=== PATIENT | male | born 1970 | race Caucasian/White ===

== ENCOUNTER 2017-06-28 03:13 | Emergency (ER) | payer OTHER ==
[~2017-06-28] VITALS: Ht 172.7 cm; Wt 82.0 kg
[2017-06-28 03:21] VITALS: TEMP 36.8; Ht 172.7 cm; Wt 82.0 kg
[2017-06-28] MEDS ORDERED: KETOROLAC TROMETHAMINE 60 MG/2 ML VIAL IM STA (03:44)
[2017-06-28] MEDS ORDERED: [UNRECOGNIZED DRUG - OTHER] PO (04:21)
[2017-06-28] MEDS ORDERED: ROPI0.5T15 PO (04:21)
[2017-06-28] MEDS ORDERED: IBUP-1050 PO (04:21)
[2017-06-28] MEDS ORDERED: RANI150T3 PO (04:21)
[2017-06-28] MEDS ORDERED: PEDICHW53 PO (04:21)
[2017-06-28] MEDS ORDERED: [UNRECOGNIZED DRUG - MIXTURE] PO (04:22)
[2017-06-28] MEDS ORDERED: MoRPHine SULFATE 10 MG/ML CARP/VIAL IM STA (04:28)
[2017-06-28] MEDS ORDERED: MoRPHine SULFATE 4 MG/ML 1 ML CARP\\VIAL ONE (04:32)
[2017-06-28] MEDS ORDERED: METH4PAK PO (05:27)
[2017-06-28] MEDS ORDERED: OXYC1TAB3 PO (05:27)
--- NOTE | 2017-06-28 05:28 | EMERGENCY ROOM VISIT NOTE ---
History First contact with patient: 03:23 Chief Complaint: BACK PAIN Stated Complaint: BACK PAIN SHOOTING DOWN LEFT LEG History of Present Illness The patient is a 46 year old male who presents to the Emergency Room with complaints of low back pain. The patient reports that for the past 3 weeks, he has had some mild pain in low back. He reports that he initially thought this was due to tight muscles. He saw a chiropractor and states this somewhat improved his pain. He has had worsening pain over the past 2 days. He states that the pain is in his left lower back and radiates into his left leg down to his foot. He rates the discomfort a 10/10 and states the pain is a sharp, pulsating and throbbing pain. The pain is worsened with moving. He took 800 mg ibuprofen tonight without relief of the pain. He had similar symptoms several years ago on his right side but states these resolved quickly. He has been slightly nauseous when the pain is severe, but denies any vomiting. He denies abdominal pain, urinary symptoms, numbness, weakness, saddle anesthesia or bowel/bladder incontinence. He denies fevers. Review of Systems A complete 10 point review of systems was reviewed with the patient with pertinent positives and negatives as per history of present illness. All else were negative. Social History Smoking Status: Never Smoker Alcohol Use: occasionally Marital Status: single Occupation Status: employed Current/Historical Medications Scheduled Methylprednisolone (Medrol Dosepak), 0 PO DAILY Pediatric Multiple Vitamin W/ (Flintstones Gummies), 1 TAB PO BID Ranitidine Hcl (Zantac), 150 MG PO QAM Ropinirole (Requip), 0.5 MG PO HS [[Vitamins A, D, E, K], 1 TAB PO BID Scheduled PRN Ibuprofen (Advil), 200-600 MG PO Q4H PRN for Pain Oxycodone Ir (Roxicodone Ir), 1-2 TAB PO Q4H PRN for Pain Physical Exam Vital Signs Date Time Temp Pulse Resp B/P (MAP) Pulse Ox O2 Delivery O2 Flow Rate FiO2 06/28/17 05:39 82 18 127/72 97 06/28/17 03:21 36.8 80 18 135/67 97 Room Air Physical Exam VITALS: Vitals are noted on the nurse's note and reviewed by myself. Vital signs stable. GENERAL: This is a 46-year-old male, in no acute distress, nondiaphoretic, well- developed well-nourished. SKIN: The skin was without rashes. HEART: Regular rate and rhythm without murmurs gallops or rubs. LUNGS: Clear to auscultation bilaterally without wheezes, rales or rhonchi. ABDOMEN: Positive bowel sounds x 4. Soft, nontender to palpation. MUSCULOSKELETAL: No tenderness of the lumbar spinous processes. Full range of motion of bilateral lower extremities, strength 5/5. Positive straight leg raise test. NEURO: Patient was alert and oriented to person place and time. Normal sensation of the lower extremities. Medical Decision & Procedures Medications Administered Medications (Trade) Dose Ordered Sig/Vale Route Start Time Stop Time Status Last Admin Dose Admin Ketorolac Tromethamine (Toradol Inj) 60 mg NOW STAT IM 06/28/17 03:44 06/28/17 03:45 DC 06/28/17 03:57 60 MG Morphine Sulfate (MoRPHine SULFATE INJ) 8 mg STK-MED ONCE .ROUTE 06/28/17 04:32 06/28/17 04:33 DC 06/28/17 04:35 8 MG ED Course The patient was evaluated as above. Patient was medicated with 60 mg Toradol IM. The patient was reevaluated and was feeling slightly better. He reports his pain is down from a 10/10 to an 8/10. 8 mg morphine IM was ordered. Patient was reevaluated and was feeling significantly better. He feels ready for discharge. Discharge instructions were reviewed with the patient. The patient verbalized understanding of my assessment and treatment plan and was discharged home in good condition. Medical Decision Differential diagnosis includes cauda equina syndrome, cord compression, disc herniation, muscle spasm, lumbar strain, epidural abscess, malignancy, transverse myelitis, urinary tract infection, colitis, diverticulitis, kidney stone, among others. The patient is a 46-year-old male who presents today complaining of low back pain. There is no evidence of cauda equina syndrome or cord compression. I do not feel any further imaging is required. Patient was treated with IM Toradol and morphine with significant improvement of symptoms. I do feel he will benefit from a course of steroids to help with radicular symptoms. He will be given a short course of oxycodone for pain relief. Conservative measures were discussed and he was advised to follow-up with his PCP for further eval. Based on the patient's presentation and work up, I feel the patient is stable for outpatient treatment. The patient was educated to return to the emergency department for any worsening of their current condition or new/concerning symptoms. He will follow up with his PCP. Medication Reconcilliation Current Medication List: was personally reviewed by me Blood Pressure Screening Patient's blood pressure: Normal blood pressure Impression Primary Impression: Lumbar radiculopathy Departure Information Dispostion Home / Self-Care Condition GOOD Prescriptions Oxycodone Ir (Roxicodone Ir) 5 Mg Tab 1-2 TAB PO Q4H Y for Pain, #12 TAB For Initial Treatment Prov: Shikha Park PA-C 06/28/17 Methylprednisolone (MEDROL DOSEPAK) 4 Mg Nick 0 PO DAILY, #1 PKT Prov: Shikha Park PA-C 06/28/17 Referrals Da Andrade D.Tejas (PCP) Patient Instructions My [facility] Additional Instructions You have been treated in the Emergency Department for Back Pain. You have received pain medicine in the emergency department which impairs your ability to operate a vehicle. It is illegal for you to drive after receiving these medicines. You have been prescribed Oxy IR to be used for pain control. This is a narcotic medication. You cannot drive or consume alcohol while on this medicine. This medicine should only be used for pain that cannot be controlled with over-the- counter pain medicines. You have been prescribed a Medrol Dosepak. This is a steroid which will help decrease your inflammation. Take the medicine as prescribed. Take the ENTIRE 6 day course of the steroids. For pain control, you can use the following [id number]-nrktdan medicines (if >12 yo): - Regular strength (325mg/tab) Tylenol (acetaminophen) 2 tabs every 4-6 hours as needed. Do not exceed 12 tablets in a 24 hour period. Avoid taking more than 4 grams (4000 mg) of Tylenol per day. This includes any other sources of acetaminophen you may take on a regular basis. - Regular strength (200 mg/tab) Advil (ibuprofen) 1-2 tabs every 4-6 hours as needed. Do not exceed a dose of 3200 mg per day. If this is an acute injury, ice can be applied to the area of pain for the first 3 days to help decrease pain and inflammation. After the first 3 days, a heating pad can be used over the area for continued soothing relief. You should schedule a follow-up appointment in 2-3 days with your Primary Care Provider for further evaluation and treatment of your back pain. Return to the Emergency Department if your current symptoms worsen despite treatment course outlined above, or if you develop any of the following symptoms : intractable pain despite aforementioned treatment course, loss of control of your bowel or bladder, numbness or tingling in your groin, or development of a fever.
[2017-06-28 05:39] VITALS: BP 127/72; PULSE 82; O2SAT 97
== END 2017-06-28 05:35 | disposition home or self-care (01) ==
LOC: C.EDB 03:15
DX: M54.16 Radiculopathy, lumbar region (principal); Z79.899 Other long term (current) drug therapy